=== PATIENT | female | born 1995 | race Caucasian/White ===

== ENCOUNTER 2018-04-13 19:56 | Inpatient (IN) | payer OTHER ==
[2018-04-13 21:34] LABS: HEMATOCRIT 34.3 % (36.0-47.0); HEMOGLOBIN 11.5 g/dl (12.0-15.5); MEAN CORPUSCULAR HEMOGLOBIN 30.8 pg (27.0-33.0); MEAN CORPUSCULAR HGB CONC 33.5 g/dl (32.0-36.5); PLATELET COUNT, AUTOMATED 206 10^3/uL (150-450); RED BLOOD COUNT 3.73 10^6/uL (4.00-5.40); RED CELL DISTRIBUTION WIDTH 13.2 % (11.5-14.5); WHITE BLOOD COUNT 10.8 10^3/uL (4.0-10.0)
[2018-04-13 22:41] LABS: HBSAG L&D NEGATIVE (NEGATIVE)
[2018-04-13] MEDS: LACTATED RINGER'S 1000 ML IV (23:00)
[2018-04-13] MEDS ORDERED: LR 1,000 ML IV ×2 (23:20)
[2018-04-13] MEDS: miSOPROStol 50 MCG 1/2 TAB (S0191) PO (23:35)
[2018-04-14 00:43] LABS: CREATININE,RANDOM URINE 64.7 MG/DL
[2018-04-14] MEDS ORDERED: FENTANYL 2MCG/ML ROPIVACAINE 0.2% IN 0.9% NACL 200ML IVBAG As Ordered (01:34)
[2018-04-14] MEDS ORDERED: EPIDURAL COMMENT XX (03:00)
[2018-04-14] MEDS ORDERED: ePHEDrine SULFATE 25 MG/5 ML(5MG/ML) SYRINGE IV (03:00)
[2018-04-14] MEDS ORDERED: LACTATED RINGER'S 1000 ML IV (03:00)
[2018-04-14] MEDS ORDERED: EPIDURAL/PCA KEYS XX (03:00)
[2018-04-14] MEDS ORDERED: ONDANSETRON 4MG/2ML VIAL (J2405) IV (03:00)
[2018-04-14] MEDS ORDERED: diphenhydrAMINE INJ 50MG/ML VIAL (J1200) IV (03:00)
[2018-04-14] MEDS ORDERED: FENTANYL/ROPIVACAINE/NACL BAG 200 ML EPIDURAL (03:00)
[2018-04-14] MEDS ORDERED: NALOXONE INJ 0.4 MG/1 ML VIAL (J2310) IV (03:00)
[2018-04-14] MEDS ORDERED: REFRIGERATOR IV KEYS XX (03:00)
[2018-04-14] MEDS: OXYTOCIN DRIP 30 UNITS in APPROPRIATE DILUENT 1 EA IV (03:55)
[2018-04-14] MEDS: OXYTOCIN INJ 10 UNITS/ML VIAL (J2590) IV (12:05)
[2018-04-14] MEDS ORDERED: ANUSOL HC CREAM 30GM TOP (12:30)
[2018-04-14] MEDS ORDERED: DOCUSATE SODIUM 100 MG CAP PO (12:30)
[2018-04-14] MEDS ORDERED: MOM 30ML SUSPENSION UDC PO (12:30)
[2018-04-14] MEDS ORDERED: DIBUCAINE 1% OINTMENT 30GM TOP (12:30)
[2018-04-14] MEDS ORDERED: ACETAMINOPHEN 500 MG TAB PO (12:30)
[2018-04-14] MEDS ORDERED: METHYLERGONOVINE MALEATE 0.2 MG TAB PO (12:30)
[2018-04-14 12:48] LABS: CORD GAS ABE V -4.1; CORD GAS HCO3 V 19.7 MEQ/L; CORD GAS O2 SAT V 84.1 %; CORD GAS PH V 7.393 UNITS; CORD GAS SBC V 20.8 MEQ/L; CORD GAS TCO2 V 20.7 MEQ/L
[2018-04-14 12:52] LABS: CORD GAS ABE A -4.2; CORD GAS HCO3 A 23.4 MEQ/L; CORD GAS O2 SAT A 37.6 %; CORD GAS PCO2 A 51.8 mmHg; CORD GAS PH A 7.272 UNITS; CORD GAS PO2 A 18.9 mmHg; CORD GAS SBC A 19.6 MEQ/L; CORD GAS TCO2 A 24.9 MEQ/L
[2018-04-14] MEDS: MEASLES,MUMPS,RUBELLA VACCINE INJ (MMR-II) (90707) SC (14:45)
[2018-04-14] MEDS: RHOGAM 300 MCG (1500 IU) INJ (J2790) IM (14:45)
[2018-04-14] MEDS: IBUPROFEN 800 MG TAB PO (15:01)
[2018-04-14] MEDS ORDERED: medroxyPROGESTERone ACET IM SUSP 150 MG/ML VIAL (J1050) IM (22:15)
[2018-04-15 07:22] LABS: HEMATOCRIT 28.3 % (36.0-47.0); MEAN CORPUSCULAR HEMOGLOBIN 30.5 pg (27.0-33.0); MEAN CORPUSCULAR HGB CONC 33.6 g/dl (32.0-36.5); PLATELET COUNT, AUTOMATED 166 10^3/uL (150-450); RED BLOOD COUNT 3.11 10^6/uL (4.00-5.40); RED CELL DISTRIBUTION WIDTH 13.3 % (11.5-14.5); WHITE BLOOD COUNT 12.8 10^3/uL (4.0-10.0)
[2018-04-15 07:24] LABS: HEMOGLOBIN 9.5 g/dl (12.0-15.5)
[2018-04-15] MEDS: PRENATAL VITAMINS CHEWABLE TABLET PO (07:52)
[2018-04-16] MEDS: PRENATAL VITAMINS CHEWABLE TABLET PO (08:19)
[2018-04-16] MEDS: medroxyPROGESTERone ACET IM SUSP 150 MG/ML VIAL (J1050) IM (09:55)
== END 2018-04-16 10:40 | disposition home or self-care (01) | DRG 775 ==
LOC: M LDO 19:56 → M LDI 20:45 → M OBS 04-14 14:42
PROVIDERS: Obstetrics & Gynecology
PROC: 10E0XZZ Delivery of Products of Conception, External Approach (ICD-10-PCS; principal; 2018-04-14)
PROC: 0HQ9XZZ Repair Perineum Skin, External Approach (ICD-10-PCS; 2018-04-14)
DX: O99.214 Obesity complicating childbirth (principal); Z68.41 Body mass index [BMI] 40.0-44.9, adult; Z37.0 Single live birth; Z3A.38 38 weeks gestation of pregnancy; E66.9 Obesity, unspecified; Z87.891 Personal history of nicotine dependence; O70.0 First degree perineal laceration during delivery

== ENCOUNTER → 2018-07-29 | Outpatient (REF) | payer OTHER ==
[~2018-07-29] MED LIST: ANUS2.5C2 TOP; ASCO25TA PO; COLA100C5 PO; IBUP-1114 PO; IRON27TA2 PO; MOM30SS PO; PRENTAB9 PO
[2018-07-29 20:08] LABS: CHLAMYDIA DNA AMPLIFICATION NEGATIVE (NEGATIVE); GC DNA AMPLIFICATION NEGATIVE (NEGATIVE)
== END ==
LOC: M SFHCLERA 14:30
PROVIDERS: ATTEND Nurse Practitioner Family
DX: R11.0 Nausea (principal)

== ENCOUNTER → 2019-01-06 | Outpatient (REF) | payer OTHER ==
[~2019-01-06] MED LIST changes: -ASCO25TA PO; +VITA1TAB23 PO
[2019-01-06 23:12] LABS: CHLAMYDIA DNA AMPLIFICATION NEGATIVE (NEGATIVE); GC DNA AMPLIFICATION NEGATIVE (NEGATIVE)
== END ==
LOC: M LAB REF 19:56
PROVIDERS: ATTEND Physician Assistant
DX: R10.2 Pelvic and perineal pain (principal)